=== PATIENT | male | born 1995 | race American Indian/Alaskan Native ===

== ENCOUNTER 2020-06-10 19:24 | Emergency (ER) | payer SELFPAY ==
[2020-06-10 20:49] VITALS: BP 131/73
--- NOTE | 2020-06-10 21:45 | XRay Report ---
RIGHT ANKLE 4 VIEW(S) INDICATION / CLINICAL INFORMATION: right ankle pain COMPARISON: None available. FINDINGS: BONES / JOINT(S): No acute fracture or subluxation. No significant arthritis. SOFT TISSUES: Mild ankle edema. ADDITIONAL FINDINGS: None. Signer Name: Heath Javier MD Signed: 06/10/2020 9:41 PM Workstation Name: [id number]
[2020-06-10] MEDS ORDERED: ACETAMINOPHEN 500 MG TAB PO ONE (22:34)
[2020-06-10] MEDS ORDERED: IBUPROFEN 600 MG TAB PO ONE (22:34)
--- NOTE | 2020-06-10 22:35 | Emergency Department Report ---
ED Lower Extremity HPI - General Chief Complaint: Extremity Injury, Lower Stated Complaint: RT ANKLE INJURY Source: patient Mode of arrival: Ambulatory Limitations: No Limitations - History of Present Illness Initial Comments: Patient is a 24-year-old -[place] male with no past medical history who presents to the ED with complaint of acute onset persistent severe right ankle pain and swelling after he twisted it twice while playing basketball 6 days ago. Patient states that pain and swelling of worsened in the last 2 days such that he is unable to bear weight on the right ankle because of worsening pain and swelling. Patient denies head or neck injuries, syncope, chest pain, back pain, abdominal pain, nausea and vomiting, numbness and tingling or weakness of right leg or right ankle, hip pain, low back pain or change in vision. MD Complaint: ankle injury (Right ankle pain and swelling s/p twisted during basketball practice) -: Sudden, days(s) (6) Injury: Ankle: Right (pain, swelling) Type of Injury: inversion Place: street/outdoors Severity: severe Severity scale (0 -10): 8 Improves With: NSAID Worsens With: weight bearing, movement, palpation Context: fall (twisted right ankle) Associated Symptoms: snap/pop sensation, swelling, able to partially bear weight. denies: numbness, tingling, unable to bear weight - Related Data Previous Rx's Medication Instructions Recorded Last Taken Type Amoxicillin [Trimox CAP] 500 mg PO Q8H #30 capsule 10/01/19 Unknown Rx Butalb/Acetamin/Caff 50-325-40 1 - 2 tab PO Q6HR PRN #15 tab 10/01/19 Unknown Rx [Fioricet 50-325-40] Cetirizine HCl [Zyrtec 10mg tab] 10 mg PO DAILY #30 tablet 10/01/19 Unknown Rx Ketorolac [Toradol] 10 mg PO Q8H PRN #20 tablet 10/01/19 Unknown Rx Ondansetron [Zofran Odt] 4 mg PO Q6HR PRN #15 tab.rapdis 10/01/19 Unknown Rx Baclofen 20 mg PO Q8H PRN #21 tablet 06/10/20 Unknown Rx traMADoL [Ultram] 50 mg PO Q6HR PRN #12 tablet 06/10/20 Unknown Rx Allergies Allergy/AdvReac Type Severity Reaction Status Date / Time No Known Allergies Allergy Unverified 10/01/19 00:17 ED Review of Systems ROS: Stated complaint: RT ANKLE INJURY Other details as noted in HPI Constitutional: denies: chills, fever Eyes: denies: eye pain, eye discharge, vision change ENT: denies: ear pain, throat pain Respiratory: denies: cough, shortness of breath, wheezing Cardiovascular: denies: chest pain, palpitations Endocrine: no symptoms reported Gastrointestinal: denies: abdominal pain, nausea, diarrhea Genitourinary: denies: urgency, dysuria Musculoskeletal: joint swelling (right ankle), arthralgia (right ankle ), myalgia. denies: back pain Skin: denies: rash, lesions Neurological: denies: headache, weakness, paresthesias Psychiatric: denies: anxiety, depression Hematological/Lymphatic: denies: easy bleeding, easy bruising ED Past Medical Hx - Past Medical History Previous Medical History?: Yes Hx Asthma: Yes - Surgical History Past Surgical History?: Yes Additional Surgical History: Tonsillectomy. Adenoidectomy - Social History Smoking Status: Never Smoker Substance Use Type: None - Medications Home Medications: Home Medications Medication Instructions Recorded Confirmed Last Taken Type Amoxicillin [Trimox CAP] 500 mg PO Q8H #30 capsule 10/01/19 Unknown Rx Butalb/Acetamin/Caff 50-325-40 1 - 2 tab PO Q6HR PRN #15 tab 10/01/19 Unknown Rx [Fioricet 50-325-40] Cetirizine HCl [Zyrtec 10mg tab] 10 mg PO DAILY #30 tablet 10/01/19 Unknown Rx Ketorolac [Toradol] 10 mg PO Q8H PRN #20 tablet 10/01/19 Unknown Rx Ondansetron [Zofran Odt] 4 mg PO Q6HR PRN #15 tab.rapdis 10/01/19 Unknown Rx Baclofen 20 mg PO Q8H PRN #21 tablet 06/10/20 Unknown Rx traMADoL [Ultram] 50 mg PO Q6HR PRN #12 tablet 06/10/20 Unknown Rx ED Physical Exam - General Limitations: No Limitations General appearance: alert, in no apparent distress - Head Head exam: Present: atraumatic, normocephalic, normal inspection - Eye Eye exam: Present: normal appearance, PERRL, EOMI Pupils: Present: normal accommodation - ENT ENT exam: Present: normal exam, normal orophraynx, mucous membranes moist, TM's normal bilaterally, normal external ear exam - Neck Neck exam: Present: normal inspection, full ROM - Respiratory Respiratory exam: Present: normal lung sounds bilaterally. Absent: respiratory distress, wheezes, rales, stridor, chest wall tenderness, accessory muscle use, decreased breath sounds, prolonged expiratory - Cardiovascular Cardiovascular Exam: Present: regular rate, normal rhythm, normal heart sounds. Absent: systolic murmur, diastolic murmur, rubs, gallop - GI/Abdominal GI/Abdominal exam: Present: soft, normal bowel sounds. Absent: tenderness, guarding, rebound, hyperactive bowel sounds, hypoactive bowel sounds - Extremities Exam Extremities exam: Present: normal inspection, tenderness (Palpable right ankle tenderness with mild swelling and limited ROM due to pain), normal capillary refill, joint swelling. Absent: full ROM (limited ROM due to pain of right ankle), pedal edema, calf tenderness - Back Exam Back exam: Present: normal inspection, full ROM. Absent: tenderness, CVA tende rness (R), CVA tenderness (L), muscle spasm, paraspinal tenderness, vertebral tenderness - Neurological Exam Neurological exam: Present: alert, oriented X3, CN II-XII intact, normal gait, reflexes normal - Psychiatric Psychiatric exam: Present: normal affect, normal mood - Skin Skin exam: Present: warm, dry, intact, normal color. Absent: rash ED Course Vital Signs 06/10/20 20:40 Temperature 98.5 F Pulse Rate 64 Respiratory 18 Rate Blood Pressure 131/73 O2 Sat by Pulse 99 Oximetry ED Lower Extremity MDM - Radiology Data Radiology results: report reviewed, image reviewed [facility] [address] [place] [address] XRay Report Signed Patient: LONNIE ACEVES MR#: [id number] : 1995 Acct:[id number] Age/Sex: 24 / M ADM Date: 06/10/20 Loc: ED Attending Dr: Ordering Physician: SHAWN VELASCO MD Date of Service: 06/10/20 Procedure(s): XR ankle 3+V RT Accession Number(s): [id number] cc: ED MD ROD Fluoro Time In Minutes: RIGHT ANKLE 4 VIEW(S) INDICATION / CLINICAL INFORMATION: right ankle pain COMPARISON: None available. FINDINGS: BONES / JOINT(S): No acute fracture or subluxation. No significant arthritis. SOFT TISSUES: Mild ankle edema. ADDITIONAL FINDINGS: None. Signer Name: Tasneem Javier MD Signed: 06/10/2020 9:41 PM Workstation Name: [id number] Transcribed By: RH Dictated By: TASNEEM JAVIER III Electronically Authenticated By: TASNEEM JAVIER III Signed Date/Time: 06/10/202140 DD/ 39 TD/TT: - Medical Decision Making This is a 24-year-old -[place] male with no past medical history who presents to the ED with complaint of acute onset persistent severe right ankle pain and swelling after he twisted it twice while playing basketball 6 days ago. Patient states that pain and swelling of worsened in the last 2 days such that he is unable to bear weight on the right ankle because of worsening pain and swelling. In the ED, patient is alert and oriented x3 and is not in any distress. Right ankle x-ray showed no acute fractures or subluxations. Patient was treated for pain in the ED and on reevaluation, patient's pain is well controlled medication. Patient was therefore discharged home on pain medications and advised to follow-up with his primary care physician in 5 to 7 days for reevaluation or return to the ED immediately if symptoms get worse. - Differential Diagnosis Ankle fracture; ankle sprain; muscle strain; foot contusion Critical care attestation.: If time is entered above; I have spent that time in minutes in the direct care of this critically ill patient, excluding procedure time. ED Disposition Clinical Impression: Right ankle swelling Severe sprain of right ankle Qualifiers: Encounter type: initial encounter Qualified Code(s): S93.401A - Sprain of unspecified ligament of right ankle, initial encounter Disposition: - TO HOME OR SELFCARE Is pt being admited?: No Does the pt Need Aspirin: No Condition: Stable Instructions: Ankle Sprain, [id number] Additional Instructions: The x-ray of right ankle shows no acute fractures or subluxations but soft tissue swelling, consistent with ligament and tendon injuries. Therefore take medications with food, drink plenty of fluids and follow up with your Primary care Physician in 7-10 days for reevaluation. Return to the ED immediately if symptoms get worse. Prescriptions: Baclofen 20 mg PO Q8H PRN #21 tablet PRN Reason: Muscle Spasm traMADoL [Ultram] 50 mg PO Q6HR PRN #12 tablet PRN Reason: Pain Referrals: [facility] [Provider Group] - 3-5 Days Time of Disposition: 22:36 Print Language: PRYDEINIG
== END 2020-06-11 00:04 | disposition home or self-care (01) ==
LOC: ED 19:24
DX: S93.401A Sprain of unspecified ligament of right ankle, initial encounter (principal); J45.909 Unspecified asthma, uncomplicated; Z79.899 Other long term (current) drug therapy; Z98.890 Other specified postprocedural states; X50.1XXA Overexertion from prolonged static or awkward postures, initial encounter; Y93.89 Activity, other specified; Y92.89 Other specified places as the place of occurrence of the external cause; Y99.8 Other external cause status
CPT/HCPCS: 99283

== ENCOUNTER 2021-08-24 10:02 | Emergency (ER) | payer OTHER ==
[2021-08-24 11:52] VITALS: BP 132/77
--- NOTE | 2021-08-24 11:56 | Emergency Department Report ---
ED ENT HPI - General Chief complaint: Dental/Oral Stated complaint: SWOLLEN TOOTH Time Seen by Provider: 08/24/21 11:52 Source: patient Mode of arrival: Ambulatory Limitations: No Limitations - Related Data Previous Rx's Medication Instructions Recorded Last Taken Type Amoxicillin [Trimox CAP] 500 mg PO Q8H #30 capsule 10/01/19 Unknown Rx Butalb/Acetamin/Caff 50-325-40 1 - 2 tab PO Q6HR PRN #15 tab 10/01/19 Unknown Rx [Fioricet 50-325-40] Cetirizine HCl [Zyrtec 10mg tab] 10 mg PO DAILY #30 tablet 10/01/19 Unknown Rx Ketorolac [Toradol] 10 mg PO Q8H PRN #20 tablet 10/01/19 Unknown Rx Ondansetron [Zofran Odt] 4 mg PO Q6HR PRN #15 tab.rapdis 10/01/19 Unknown Rx Baclofen 20 mg PO Q8H PRN #21 tablet 06/10/20 Unknown Rx traMADoL [Ultram] 50 mg PO Q6HR PRN #12 tablet 06/10/20 Unknown Rx Amoxicillin [Trimox CAP] 500 mg PO BID #20 capsule 08/24/21 Unknown Rx Allergies Allergy/AdvReac Type Severity Reaction Status Date / Time shrimp Allergy Itching Verified 08/24/21 11:54 ED Dental HPI - General Chief complaint: Dental/Oral Stated complaint: SWOLLEN TOOTH Time Seen by Provider: 08/24/21 11:52 Source: patient Mode of arrival: Ambulatory Limitations: No Limitations - Related Data Previous Rx's Medication Instructions Recorded Last Taken Type Amoxicillin [Trimox CAP] 500 mg PO Q8H #30 capsule 10/01/19 Unknown Rx Butalb/Acetamin/Caff 50-325-40 1 - 2 tab PO Q6HR PRN #15 tab 10/01/19 Unknown Rx [Fioricet 50-325-40] Cetirizine HCl [Zyrtec 10mg tab] 10 mg PO DAILY #30 tablet 10/01/19 Unknown Rx Ketorolac [Toradol] 10 mg PO Q8H PRN #20 tablet 10/01/19 Unknown Rx Ondansetron [Zofran Odt] 4 mg PO Q6HR PRN #15 tab.rapdis 10/01/19 Unknown Rx Baclofen 20 mg PO Q8H PRN #21 tablet 06/10/20 Unknown Rx traMADoL [Ultram] 50 mg PO Q6HR PRN #12 tablet 06/10/20 Unknown Rx Amoxicillin [Trimox CAP] 500 mg PO BID #20 capsule 08/24/21 Unknown Rx Allergies Allergy/AdvReac Type Severity Reaction Status Date / Time shrimp Allergy Itching Verified 08/24/21 11:54 ED Review of Systems ROS: Stated complaint: SWOLLEN TOOTH Other details as noted in HPI Comment: All other systems reviewed and negative ED Past Medical Hx - Past Medical History Previous Medical History?: Yes Hx Asthma: Yes - Surgical History Past Surgical History?: Yes Additional Surgical History: Tonsillectomy. Adenoidectomy - Family History Family history: no significant - Social History Smoking Status: Never Smoker Substance Use Type: None - Medications Home Medications: Home Medications Medication Instructions Recorded Confirmed Last Taken Type Amoxicillin [Trimox CAP] 500 mg PO Q8H #30 capsule 10/01/19 Unknown Rx Butalb/Acetamin/Caff 50-325-40 1 - 2 tab PO Q6HR PRN #15 tab 10/01/19 Unknown Rx [Fioricet 50-325-40] Cetirizine HCl [Zyrtec 10mg tab] 10 mg PO DAILY #30 tablet 10/01/19 Unknown Rx Ketorolac [Toradol] 10 mg PO Q8H PRN #20 tablet 10/01/19 Unknown Rx Ondansetron [Zofran Odt] 4 mg PO Q6HR PRN #15 tab.rapdis 10/01/19 Unknown Rx Baclofen 20 mg PO Q8H PRN #21 tablet 06/10/20 Unknown Rx traMADoL [Ultram] 50 mg PO Q6HR PRN #12 tablet 06/10/20 Unknown Rx Amoxicillin [Trimox CAP] 500 mg PO BID #20 capsule 08/24/21 Unknown Rx ED Physical Exam - General Limitations: No Limitations General appearance: alert, in no apparent distress - Head Head exam: Present: atraumatic, normocephalic - Eye Eye exam: Present: normal appearance - ENT ENT exam: Present: mucous membranes moist - Neck Neck exam: Present: normal inspection - Respiratory Respiratory exam: Present: normal lung sounds bilaterally. Absent: respiratory distress - Cardiovascular Cardiovascular Exam: Present: regular rate, normal rhythm. Absent: systolic murmur, diastolic murmur, rubs, gallop - GI/Abdominal GI/Abdominal exam: Present: soft, normal bowel sounds - Rectal Rectal exam: Present: deferred - Extremities Exam Extremities exam: Present: normal inspection - Back Exam Back exam: Present: normal inspection - Neurological Exam Neurological exam: Present: alert, oriented X3 - Psychiatric Psychiatric exam: Present: normal affect, normal mood - Skin Skin exam: Present: warm, dry, intact, normal color. Absent: rash ED Course Vital Signs 08/24/21 11:45 Temperature 98.3 F Pulse Rate 62 Respiratory 20 Rate Blood Pressure 132/77 [Right] O2 Sat by Pulse 100 Oximetry Critical care attestation.: If time is entered above; I have spent that time in minutes in the direct care of this critically ill patient, excluding procedure time. ED Disposition Clinical Impression: Pain, dental Disposition: 01 HOME / SELF CARE / HOMELESS Is pt being admited?: No Does the pt Need Aspirin: No Condition: Stable Instructions: Acute Pain, Adult Additional Instructions: med as ordered tylenol or motrin for pain follow up with dentist uziel referral below Referrals: TINY MALDONADO MD [Primary Care Provider] - 3-5 Days [facility] [Outside] - 3-5 Days [facility] [Outside] - 3-5 Days Forms: Work/School Release Form(ED) Time of Disposition: 12:10
== END 2021-08-24 13:00 | disposition home or self-care (01) ==
LOC: ED 10:02
DX: K08.89 Other specified disorders of teeth and supporting structures (principal); J45.909 Unspecified asthma, uncomplicated; Z90.49 Acquired absence of other specified parts of digestive tract; Z90.89 Acquired absence of other organs; Z91.013 Allergy to seafood; Z79.899 Other long term (current) drug therapy
CPT/HCPCS: 99282